=== PATIENT | female | born 2000 | race Hispanic/Latino ===

== ENCOUNTER 2022-05-29 23:50 | Inpatient (IN) | payer OTHER ==
[~2022-05-29] VITALS: Ht 165.1 cm; Wt 101.6 kg
--- NOTE | 2022-05-30 02:41 | NUR ---
COVID SWAB DONE TO BOTH NARES AND SENT TO IN HOUSE LAB.
--- NOTE | 2022-05-30 12:16 | PR ---
[facility] [address] [place], [place] [address] Signed Progress Notes IP Datetime Report Generated by CPN: 05/30/2022 12:16 PROGRESS NOTES: [id number] Impression: Normal Progression of Labor; Reassuring Heart Rate Procedures: Sterile Vag Exam Plan: Continue Present Management VITAL SIGNS: [id number] Vital Signs: Reviewed; Within Normal Limits EXAM: [id number] Dilatation: 1.0 Effacement: 90 Station: -1 Contractions: q 1 to 3 min MEMBRANES: [id number] Amniotic Fluid Color: Meconium, Light ROM Note: No fluid noted w/ exam on glove or chux pad, no palpable bag of membranes w/ VE. Nitrazine postive, wwithout question prior to exam. Comments: Pt seen and examined. Doing well. Uncomfortable w/ contractions. Declines epidural. External monitors not tracing tocometry well, and novi was applied by RN. On exam, cx now much thinner but still 1cm. Discussed difficulty monitoring tocometry even with [place], and discussed option for IUPC. Risks / benefits discussed including increased risk of intraamniotic infection vs more accurate survellence. Given cervical change and reassuring FHT, recommend continued pitocin level and external monitoring. Pt understands and agrees. FETUS A: [id number] FHR Baseline: 135 Variability: Moderate 6-25bpm Accelerations: 15X15 Decelerations: None FHR Category: Category I Presentation: Vertex Comments on Fetus A: No evidence of metabolic acidosis FETUS B: [id number] Signing Physician: Chandana Dahl, DO *Electronically Signed* 05/30/22 1216 CHANDANA DAHL) DO PATIENT NAME: SLIME JUANA PROGRESS NOTE DATE OF : 98 PHYSICIAN: CHANDANA DAHL) DO RPT #: [id number] REPORT IS CONFIDENTIAL AND NOT TO BE RELEASED WITHOUT AUTHORIZATION
--- NOTE | 2022-05-30 17:37 | PR ---
[facility] [address] [place], [place] [address] Signed Progress Notes IP Datetime Report Generated by CPN: 05/30/2022 17:37 PROGRESS NOTES: [id number] Impression: Reassuring Heart Rate Procedures: Sterile Vag Exam Plan: Continue Present Management VITAL SIGNS: [id number] Vital Signs: Reviewed; Within Normal Limits EXAM: [id number] Dilatation: 2.0 Effacement: 90 Station: -1 Contractions: q 1 to 3 min MEMBRANES: [id number] Amniotic Fluid Color: Meconium, Light ROM Note: No fluid noted w/ exam on glove or chux pad, no palpable bag of membranes w/ VE. Nitrazine postive, wwithout question prior to exam. Comments: Pt seen and examined. Uncomfortable w/ contractions. Declines epidural. Reviewed slow progress of early labor but no signs of chorioamnionitis. Recommended IUPC for better evaluation of uterine contractility and appropriate titration of pitocin. Pt does not tolerate pelvic exams. Discussed possibility of epidural to ease discomfort w/ contractions and exam and allow for placement of IUPC. Pt will consider. Not interested in C/S at this time. All questions answered. FETUS A: [id number] FHR Baseline: 135 Variability: Moderate 6-25bpm Accelerations: 15X15 Decelerations: None FHR Category: Category I Presentation: Vertex Comments on Fetus A: No evidence of metabolic acidosis FETUS B: [id number] Signing Physician: Chandana Dahl DO Copies: ~ *Electronically Signed* 05/30/22 9737 CHANDANA DAHL (PEDRO) DO PATIENT NAME: SLIME JUANA PROGRESS NOTE DATE OF : 98 PHYSICIAN: CHANDANA DAHL (JD) DO RPT #: [id number] REPORT IS CONFIDENTIAL AND NOT TO BE RELEASED WITHOUT AUTHORIZATION
--- NOTE | 2022-05-30 21:10 | PR ---
[facility] [address] [place], [place] [address] Signed Progress Notes IP Datetime Report Generated by FELIBERTO: 05/30/2022 21:10 PROGRESS NOTES: [id number] Impression: Reassuring Heart Rate Other Impressions: Slow progress Procedures: Sterile Vag Exam Other Procedures: Pt declines internals Plan: Continue Present Management VITAL SIGNS: [id number] Vital Signs: Reviewed; Within Normal Limits EXAM: [id number] Dilatation: 3.0 Effacement: 95 Station: -1 Contractions: q 1 to 3 min MEMBRANES: [id number] Amniotic Fluid Color: Meconium, Light ROM Note: No fluid noted w/ exam on glove or chux pad, no palpable bag of membranes w/ VE. Nitrazine postive, wwithout question prior to exam. Comments: Pt seen and examined. Pt complaining of continued discomfort despite epidural. Cx shows minimal change since last exam _ 4 hrs ago. Recommended interal monitors to aid in titrating pitocin and pt declines. She is concerned about risk of IAI and discomfort. Reviewed risks of IAI w/ continued prolonged ROM and difficulty in assessing adequacy of contractions w/ external monitoring. Pt is not interested in internal monitors, increasing pitocin, or at this time. Will allow patient to rest and will continue close monitoring. Pt understands and agrees to this plan, and understands risks and benefits of intervention vs no intervention at this time. FETUS A: [id number] FHR Baseline: 135 Variability: Moderate 6-25bpm Accelerations: 15X15 Decelerations: None FHR Category: Category I Presentation: Vertex Comments on Fetus A: No evidence of metabolic acidosis FETUS B: [id number] Signing Physician: Chandana Dahl DO *Electronically Signed* 05/30/222109 CHANDANA DAHL) DO PATIENT NAME: MICHAEL JUAN PROGRESS NOTE DATE OF : 98 PHYSICIAN: CHANDANA DAHL (JD) DO RPT #: [id number] REPORT IS CONFIDENTIAL AND NOT TO BE RELEASED WITHOUT AUTHORIZATION [address] [place], [place] [address] Signed Copies: ~ *Electronically Signed* 05/30/222109 CHANDANA DAHL) DO PATIENT NAME: MICHAEL JUAN PROGRESS NOTE DATE OF : 98 PHYSICIAN: CHANDANA DAHL (JD) DO RPT #: [id number] REPORT IS CONFIDENTIAL AND NOT TO BE RELEASED WITHOUT AUTHORIZATION
--- NOTE | 2022-05-30 22:15 | PR ---
[facility] [address] [place], [place] [address] Signed Progress Notes IP Datetime Report Generated by CPN: 05/30/2022 22:15 PROGRESS NOTES: [id number] Impression: Reassuring Heart Rate Other Impressions: Slow progress Procedures: Sterile Vag Exam Other Procedures: Pt declines internals Plan: Anesthesia Consult VITAL SIGNS: [id number] Vital Signs: Reviewed; Within Normal Limits EXAM: [id number] Dilatation: 5.0 Effacement: 95 Station: -1 Contractions: q 1 to 3 min MEMBRANES: [id number] Membranes Status: Ruptured Amniotic Fluid Color: Meconium, Light ROM Note: No fluid noted w/ exam on glove or chux pad, no palpable bag of membranes w/ VE. Nitrazine postive, wwithout question prior to exam. Comments: Pt complaining of low back pain, bloody show noted on exam. SSE: /-1, residual bag palpable Plan: anesthesia en route to re-bolus epidural. Continue pitocin. Pt still strongly desires vaginal delivery and declines internal monitors. FETUS A: [id number] FHR Baseline: 135 Variability: Moderate 6-25bpm Accelerations: 15X15 Decelerations: None FHR Category: Category I Presentation: Vertex Comments on Fetus A: No evidence of metabolic acidosis FETUS B: [id number] Signing Physician: Shekhar Curtis DO *Electronically Signed* 05/30/22 1081 SHEKHAR CURTIS DO PATIENT NAME: MICHAEL JUAN PROGRESS NOTE DATE OF : 98 PHYSICIAN: SHEKHAR CURTIS DO RPT #: [id number] REPORT IS CONFIDENTIAL AND NOT TO BE RELEASED WITHOUT AUTHORIZATION
--- NOTE | 2022-05-30 22:57 | PR ---
[facility] [facility] [address] [place], [place] [address] Signed Progress Notes IP Datetime Report Generated by CPN: 05/30/2022 22:57 PROGRESS NOTES: [id number] Impression: Normal Progression of Labor Other Impressions: Slow progress Procedures: Sterile Vag Exam Other Procedures: AROM residual bag Plan: Continue Present Management VITAL SIGNS: [id number] Vital Signs: Reviewed; Within Normal Limits EXAM: [id number] Dilatation: 7.0 Effacement: 95 Station: -1 Contractions: q 1 to 3 min MEMBRANES: [id number] Membranes Status: Ruptured Amniotic Fluid Color: Meconium, Light ROM Note: ROM of forebage per Dr. Curtis. Small amount bloody show present, no mec color noted. Comments: Pt comfortable with re-bolused epidural Now 8cm, progressing well, bloody show persists Amniotomy of residual bag performed without difficulty, scant fluid return Continue current mgmt FETUS A: [id number] FHR Baseline: 135 Variability: Moderate 6-25bpm Accelerations: 15X15 Decelerations: None FHR Category: Category I Presentation: Vertex Comments on Fetus A: No evidence of metabolic acidosis FETUS B: [id number] Signing Physician: Shekhar Curtis DO *Electronically Signed* 05/30/22 4352 SHEKHAR CURTIS DO PATIENT NAME: MICHAEL JUAN PROGRESS NOTE DATE OF : 98 PHYSICIAN: SHEKHAR CURTIS DO RPT #: [id number] REPORT IS CONFIDENTIAL AND NOT TO BE RELEASED WITHOUT AUTHORIZATION
--- NOTE | 2022-05-31 06:01 | PR ---
[facility] [address] [facility] [place], [place] [address] Signed PP Progress Notes Datetime Report Generated by CPN: 05/31/2022 06:01 SUBJECTIVE: [id number] Pain: Within Normal Limits Nausea/Vomiting: Denies Flatus: No Bowel Movement: No Vital Signs: [id number] Vital Signs: Reviewed Notable Details: Tachycardia. Urine output: 600cc in lugo, dark but clear Cardiovascular: Abnormal Respiratory: Normal Abdomen/Uterus: Normal Lochia: Normal Vulva/Perineum: Not Done Breasts: Not Done CVA Tenderness: Not Done Extremities: Normal Exam Comments: Fundus firm U-2 nontender. QBL last hour 27cc (scant). Pt laying in bed appears comfortable. Denies lightheadedness or dizzness. IMPRESSION/PLAN/PROCEDURES: [id number] Other Impression: Maternal tachycardia; hx pp hemorrhage Other Plans: Labs, fluid rescussitation Progress Notes: Physician present on FBC and reviewed vital signs showing significant tachycardia 130-150's over past _ 1 1/2 hrs. BPs stable. Pt w/ hemorrhage for QLB _ 1100 per RN. Reviewed 03:30 labs w/ normal coags and fibrinogen as well as Hgb 9.2. Reviewed I/O's. Pt denies lightheadedness / dizziness. No evidence of ongoing bleeding. Pt feels well w/ no subjective fever or other concerns. Will recheck CBC, fibrinogen, and coags. Bolus 1L LR and then will run at 150cc. Await lab results. All questions answered. Signing Physician: Chandana DahlDO Copies: ~ *Electronically Signed* 05/31/22 0601 CHANDANA DAHL) DO PATIENT NAME: MICHAEL JUAN PROGRESS NOTE DATE OF : 98 PHYSICIAN: CHANDANA DAHL) DO RPT #: [id number] REPORT IS CONFIDENTIAL AND NOT TO BE RELEASED WITHOUT AUTHORIZATION
--- NOTE | 2022-05-31 06:18 | PR ---
[facility] [address] [facility] [place], [place] [address] Signed PP Progress Notes Datetime Report Generated by CPN: 05/31/2022 06:18 SUBJECTIVE: [id number] Pain: Within Normal Limits Nausea/Vomiting: Denies Flatus: No Bowel Movement: No Vital Signs: [id number] Vital Signs: Reviewed Notable Details: Tachycardia. Urine output: 600cc in lugo, dark but clear Cardiovascular: Abnormal Respiratory: Normal Abdomen/Uterus: Normal Lochia: Normal Vulva/Perineum: Not Done Breasts: Not Done CVA Tenderness: Not Done Extremities: Normal Exam Comments: Fundus firm U-2 nontender. QBL last hour 27cc (scant). Pt laying in bed appears comfortable. Denies lightheadedness or dizzness. IMPRESSION/PLAN/PROCEDURES: [id number] Other Impression: Maternal tachycardia; hx pp hemorrhage Other Plans: Labs, fluid rescussitation Progress Notes: Lugo catheter bag changed for one with manometer to better monitor urine output. Reviewed urine output with RN. _500cc last hour and another 200cc when lugo bag changed. Pt again reports that she feels well. Awaiting lab results. Signing Physician: Chandana Dahl DO Copies: ~ *Electronically Signed* 05/31/22617 CHANDANA DAHL (PEDRO) DO PATIENT NAME: MICHAEL JUAN PROGRESS NOTE DATE OF : 98 PHYSICIAN: CHANDANA DAHL (JD) DO RPT #: [id number] REPORT IS CONFIDENTIAL AND NOT TO BE RELEASED WITHOUT AUTHORIZATION
--- NOTE | 2022-05-31 06:59 | PR ---
[facility] [address] [facility] [place], [place] [address] Signed PP Progress Notes Datetime Report Generated by CPN: 05/31/2022 06:59 SUBJECTIVE: [id number] Pain: Within Normal Limits Nausea/Vomiting: Denies Flatus: No Bowel Movement: No Vital Signs: [id number] Vital Signs: Reviewed Notable Details: Tachycardia improving Cardiovascular: Abnormal Respiratory: Normal Abdomen/Uterus: Normal Lochia: Normal Vulva/Perineum: Not Done Breasts: Not Done CVA Tenderness: Not Done Extremities: Normal Exam Comments: Fundus firm U-2 nontender. QBL last hour 27cc (scant). Pt laying in bed appears comfortable. Denies lightheadedness or dizzness. IMPRESSION/PLAN/PROCEDURES: [id number] Other Impression: Maternal tachycardia; hx pp hemorrhage Other Plans: Labs, fluid rescussitation Progress Notes: Pt resting well. Reviewed labs and Hgb now 8.7 w/ normal coags and fibrinogen. Cervantes draining clear yellow fluid and tachycardia improving w/ IV fluids. Will continue LR 150cc/hr at this time and reevaluate. Signing Physician: Chandana Dahl DO Copies: ~ *Electronically Signed* 05/31/22 0659 CHANDANA DAHL (PEDRO) DO PATIENT NAME: MICHAEL JUAN PROGRESS NOTE DATE OF : 98 PHYSICIAN: CHANDANA DAHL (JD) DO RPT #: [id number] REPORT IS CONFIDENTIAL AND NOT TO BE RELEASED WITHOUT AUTHORIZATION
--- NOTE | 2022-06-01 12:33 | PR ---
[facility] [address] [place], [place] [address] Signed PP Progress Notes Datetime Report Generated by CPN: 06/01/2022 12:32 SUBJECTIVE: [id number] Pain: Within Normal Limits Nausea/Vomiting: Denies Flatus: Yes Bowel Movement: No Vital Signs: [id number] Vital Signs: Reviewed; Within Normal Limits Notable Details: Tachycardia improving Cardiovascular: Normal Respiratory: Normal Abdomen/Uterus: Normal Lochia: Normal Vulva/Perineum: Not Done Breasts: Not Done CVA Tenderness: Not Done Extremities: Normal Exam Comments: Fundus firm U-2 nontender. QBL last hour 27cc (scant). Pt laying in bed appears comfortable. Denies lightheadedness or dizzness. IMPRESSION/PLAN/PROCEDURES: [id number] Impression: Difficulties Other Impression: Maternal tachycardia; hx pp hemorrhage Plan: Continue Present Management; Discharge Other Plans: Labs, fluid rescussitation Progress Notes: Pt is a 22 yo PPD#1 s/p -complicated by PPH: 1100mL received TXA 1g -s/p IV iron infusion -progressing well : ambulating, voiding, tolerating regular diet, denies dizziness/ lightheadedness, lochia light. Pt concerned about and has outpatient consult scheduled for tomorrow -Undecided re: contraception -Requesting DC to home today Signing Physician: Shekhar Curtis DO *Electronically Signed* 06/01/22 1232 SHEKHAR CURTIS DO PATIENT NAME: MICHAEL JUAN PROGRESS NOTE DATE OF : 98 PHYSICIAN: SHEKHAR CURTIS DO RPT #: [id number] REPORT IS CONFIDENTIAL AND NOT TO BE RELEASED WITHOUT AUTHORIZATION
== END 2022-06-01 14:16 | disposition home or self-care (01) | DRG 806 ==
LOC: FBC 23:50
PROVIDERS: ADMIT Obstetrics & Gynecology; ATTEND Obstetrics & Gynecology
PROC: 10E0XZZ Delivery of Products of Conception, External Approach (ICD-10-PCS; principal; 2022-05-31)
PROC: 10H07YZ Insertion of Other Device into Products of Conception, Via Natural or Artificial Opening (ICD-10-PCS; 2022-05-31)
PROC: 0KQM0ZZ Repair Perineum Muscle, Open Approach (ICD-10-PCS; 2022-05-31)
PROC: 0UQMXZZ Repair Vulva, External Approach (ICD-10-PCS; 2022-05-31)
PROC: 00HU33Z Insertion of Infusion Device into Spinal Canal, Percutaneous Approach (ICD-10-PCS; 2022-05-31)
PROC: 3E0R3BZ Introduction of Anesthetic Agent into Spinal Canal, Percutaneous Approach (ICD-10-PCS; 2022-05-31)
DX: O36.63X0 Maternal care for excessive fetal growth, third trimester, not applicable or unspecified (principal); D62 Acute posthemorrhagic anemia; Z37.0 Single live birth; O72.1 Other immediate postpartum hemorrhage; O77.0 Labor and delivery complicated by meconium in amniotic fluid; Z20.822 Contact with and (suspected) exposure to COVID-19; R00.0 Tachycardia, unspecified; O99.892 Other specified diseases and conditions complicating childbirth; Z67.10 Type A blood, Rh positive; O70.1 Second degree perineal laceration during delivery; O71.82 Other specified trauma to perineum and vulva; O99.214 Obesity complicating childbirth; Z3A.39 39 weeks gestation of pregnancy
CPT/HCPCS: 01960; 36415; 85014; 85018; 85025; 85027; 85384; 85610; 85730; 86850; 86900; 86901; 87502; A9270; C9803; J2590; J2795; J7121; Q0138; U0003